=== PATIENT | female | born 1955 | race Caucasian/White ===

== ENCOUNTER 2018-05-20 06:02 | Day surgery (SDC) | payer OTHER ==
[2018-05-20] MEDS ORDERED: MIDAZOLAM 1 MG/ML 2 ML INJ (08:58)
[2018-05-20] MEDS ORDERED: FENTAnyl 50 MCG/ML VIAL (08:58)
== END 2018-05-20 10:40 | disposition home or self-care (01) ==
LOC: GIL 06:02
DX: C18.7 Malignant neoplasm of sigmoid colon (principal); K64.8 Other hemorrhoids; E78.5 Hyperlipidemia, unspecified
CPT/HCPCS: 45380; 88305

== ENCOUNTER 2018-07-22 08:42 | Inpatient (IN) | payer OTHER ==
[2018-07-22] MEDS: SOD CHLORIDE 0.9% 1,000 ML IV (08:00)
[~2018-07-22 08:42] MED LIST: SEVOFLURANE 15 MIN
[2018-07-22] MEDS ORDERED: NEOSTIGMINE 10 MG INJ (09:43)
[2018-07-22] MEDS ORDERED: SUCCINYLCHOLINE CHLORIDE 100 MG/5 ML SYG IV (09:43)
[2018-07-22] MEDS ORDERED: ROCURONIUM 50 MG INJ ×2 (09:43→13:00)
[2018-07-22] MEDS ORDERED: MIDAZOLAM 1 MG/ML 2 ML INJ (09:43)
[2018-07-22] MEDS ORDERED: LIDOCAINE 100 MG SYRINGE (09:43)
[2018-07-22] MEDS ORDERED: PROPOFOL 20 ML (09:43)
[2018-07-22] MEDS ORDERED: GLYCOPYRROLATE 0.4 MG INJ (09:43)
[2018-07-22] MEDS ORDERED: PHENYLephrine (100 MCG/ML) 10ML SYG (09:44)
[2018-07-22] MEDS ORDERED: METOCLOPRAMIDE 10 MG INJ (09:44)
[2018-07-22] MEDS ORDERED: KETOROLAC 30 MG INJ (09:44)
[2018-07-22] MEDS ORDERED: ONDANSETRON 4 MG INJ (09:44)
[2018-07-22] MEDS: AMPICILLIN/SULB 3 GM/NS (PMX) 100 ML IVPB (11:20)
[2018-07-22] MEDS ORDERED: hydrALAzine 20 MG INJ IV (12:00)
[2018-07-22] MEDS ORDERED: ONDANSETRON 4 MG INJ IV ×2 (12:00→15:00)
[2018-07-22] MEDS ORDERED: KETOROLAC 30 MG INJ IV (12:00)
[2018-07-22] MEDS ORDERED: MEPERIDINE 25 MG INJ IV (12:00)
[2018-07-22] MEDS ORDERED: METOCLOPRAMIDE 10 MG INJ IV (12:00)
[2018-07-22] MEDS ORDERED: LABETALOL HCL 20MG INJ IV (12:00)
[2018-07-22] MEDS ORDERED: morphine (1 MG/ML) 10ML SYRINGE IV (12:00)
[2018-07-22] MEDS ORDERED: OXYCODONE/ACETAMINOPHEN (5/325) TAB PO (12:00)
[2018-07-22] MEDS ORDERED: HYDROmorphONE 1 MG/5 ML IV SYRINGE IV (12:00)
[2018-07-22] MEDS ORDERED: DIPHENHYDRAMINE 50 MG INJ IV (12:00)
[2018-07-22] MEDS ORDERED: FENTAnyl 50 MCG/ML VIAL IV (12:00)
[2018-07-22] MEDS ORDERED: ALBUTEROL 0.083% (NEB) 2.5 MG/3 ML AMP HHN (12:00)
[2018-07-22] MEDS ORDERED: EPHEDrine 50 MG INJ (12:13)
[2018-07-22] MEDS ORDERED: METOPROLOL 5 MG INJ (12:13)
[2018-07-22] MEDS: morphine 1 MG/ML 30 ML (PCA) IV (15:14)
[2018-07-22] MEDS: ACETAMINOPHEN 1000MG/100ML IV 100 ML IVPB (18:08)
[2018-07-22] MEDS: D5W-0.45 NACL + KCL 20 MEQ 1,000 ML IV ×2 (18:09→22:44)
[2018-07-23] MEDS: D5W-0.45 NACL + KCL 20 MEQ 1,000 ML IV ×3 (06:09→18:15)
[2018-07-23] MEDS: morphine 1 MG/ML 30 ML (PCA) IV (07:04)
[2018-07-23] MEDS ORDERED: VITAMIN A & D 5 GM OINT PACKET TOP (07:43)
[2018-07-23 10:25] LABS: ADD MAN DIFF? NO
[2018-07-23 10:26] LABS: BASOPHILS % 0.4 % (0.0-2.0); EOSINOPHILS # 0.1 10^3/ul (0.0-0.5); EOSINOPHILS % 0.6 % (0.0-7.0); HEMATOCRIT 32.2 % (37.0-47.0); HEMOGLOBIN 10.4 g/dl (12.0-16.0); LYMPHOCYTES # 2.6 10^3/ul (0.8-2.9); LYMPHOCYTES % 31.3 % (15.0-51.0); MEAN CORPUSCULAR HEMOGLOBIN 28.8 pg (29.0-33.0); MEAN CORPUSCULAR HGB CONC 32.3 g/dl (32.0-37.0); MEAN CORPUSCULAR VOLUME 89.2 fl (82.0-101.0); MEAN PLATELET VOLUME 10.2 fl (7.4-10.4); MONOCYTE # 0.9 10^3/ul (0.3-0.9); MONOCYTES % 10.6 % (0.0-11.0); NEUTROPHIL # 4.8 10^3/ul (1.6-7.5); NEUTROPHILS % 56.7 % (39.0-77.0); PLATELET COUNT 247 10^3/UL (140-415); RED BLOOD COUNT 3.61 10^6/ul (4.20-5.40)
[2018-07-23 10:26] LABS: WHITE BLOOD COUNT 8.4 10^3/ul (4.8-10.8)
[2018-07-23 10:57] LABS: INR 1.18; PROTIME 15.1 Sec (11.9-14.9); PT RATIO 1.2
[2018-07-23 10:58] LABS: ANION GAP 0 (5-13); BLOOD UREA NITROGEN 10 mg/dl (7-20); CALCIUM 8.3 mg/dl (8.4-10.2); CARBON DIOXIDE 32 mmol/L (21-31); CHLORIDE 105 mmol/L (97-110); CREATININE 0.65 mg/dl (0.44-1.00); Estimated GFR > 60 mL/min (>60); GLUCOSE 109 mg/dl (70-220); MAGNESIUM 1.8 mg/dl (1.7-2.5); PARTIAL THROMBOPLASTIN TIME 31.7 Sec (23.0-35.0); PHOSPHORUS 3.2 mg/dl (2.5-4.9); SODIUM 137 mmol/L (135-144)
[2018-07-23] MEDS: PIPER-TAZO 3.375 GM IV (PMX) 100 ML IVPB ×3 (11:38→23:15)
[2018-07-24] MEDS: PIPER-TAZO 3.375 GM IV (PMX) 100 ML IVPB ×4 (05:28→23:43)
[2018-07-24] MEDS: D5W-0.45 NACL + KCL 20 MEQ 1,000 ML IV ×4 (05:31→22:44)
[2018-07-24] MEDS: morphine 1 MG/ML 30 ML (PCA) IV (05:45)
[2018-07-24 08:48] LABS: ADD MAN DIFF? NO
[2018-07-24 08:56] LABS: BASOPHILS % 0.4 % (0.0-2.0); EOSINOPHILS # 0.1 10^3/ul (0.0-0.5); EOSINOPHILS % 1.1 % (0.0-7.0); HEMATOCRIT 33.9 % (37.0-47.0); HEMOGLOBIN 10.8 g/dl (12.0-16.0); LYMPHOCYTES # 2.3 10^3/ul (0.8-2.9); LYMPHOCYTES % 25.9 % (15.0-51.0); MEAN CORPUSCULAR HEMOGLOBIN 28.4 pg (29.0-33.0); MEAN CORPUSCULAR HGB CONC 31.9 g/dl (32.0-37.0); MEAN CORPUSCULAR VOLUME 89.2 fl (82.0-101.0); MEAN PLATELET VOLUME 9.7 fl (7.4-10.4); NEUTROPHIL # 5.6 10^3/ul (1.6-7.5); NEUTROPHILS % 61.4 % (39.0-77.0); PLATELET COUNT 245 10^3/UL (140-415); RED CELL DISTRIBUTION WIDTH 12.7 % (11.5-14.5)
[2018-07-24 08:56] LABS: WHITE BLOOD COUNT 9.1 10^3/ul (4.8-10.8)
[2018-07-24 09:18] LABS: ANION GAP 2 (5-13); BLOOD UREA NITROGEN 6 mg/dl (7-20); CALCIUM 8.4 mg/dl (8.4-10.2); CARBON DIOXIDE 31 mmol/L (21-31); CHLORIDE 101 mmol/L (97-110); CREATININE 0.78 mg/dl (0.44-1.00); Estimated GFR > 60 mL/min (>60); GLUCOSE 123 mg/dl (70-220); MAGNESIUM 1.8 mg/dl (1.7-2.5); PHOSPHORUS 3.1 mg/dl (2.5-4.9); POTASSIUM 4.8 mmol/L (3.5-5.1); SODIUM 134 mmol/L (135-144)
[2018-07-24 09:26] LABS: INR 1.13; PROTIME 14.6 Sec (11.9-14.9); PT RATIO 1.1
[2018-07-24 09:27] LABS: PARTIAL THROMBOPLASTIN TIME 29.7 Sec (23.0-35.0)
[2018-07-25] MEDS: D5W-0.45 NACL + KCL 20 MEQ 1,000 ML IV ×3 (03:21→23:12)
[2018-07-25] MEDS: PIPER-TAZO 3.375 GM IV (PMX) 100 ML IVPB ×4 (06:11→23:12)
[2018-07-25 09:05] LABS: ADD MAN DIFF? NO
[2018-07-25 09:08] LABS: BASOPHIL # 0.1 10^3/ul (0.0-0.1); BASOPHILS % 0.7 % (0.0-2.0); EOSINOPHILS # 0.3 10^3/ul (0.0-0.5); EOSINOPHILS % 3.8 % (0.0-7.0); HEMOGLOBIN 11.4 g/dl (12.0-16.0); LYMPHOCYTES # 1.8 10^3/ul (0.8-2.9); LYMPHOCYTES % 26.3 % (15.0-51.0); MEAN CORPUSCULAR HEMOGLOBIN 28.4 pg (29.0-33.0); MEAN CORPUSCULAR HGB CONC 32.6 g/dl (32.0-37.0); MEAN CORPUSCULAR VOLUME 87.1 fl (82.0-101.0); MEAN PLATELET VOLUME 9.6 fl (7.4-10.4); MONOCYTE # 0.6 10^3/ul (0.3-0.9); MONOCYTES % 9.3 % (0.0-11.0); NEUTROPHIL # 4.1 10^3/ul (1.6-7.5); NEUTROPHILS % 59.6 % (39.0-77.0); PLATELET COUNT 266 10^3/UL (140-415); RED BLOOD COUNT 4.02 10^6/ul (4.20-5.40); RED CELL DISTRIBUTION WIDTH 12.4 % (11.5-14.5)
[2018-07-25 09:08] LABS: WHITE BLOOD COUNT 6.8 10^3/ul (4.8-10.8)
[2018-07-25 09:29] LABS: INR 1.08; PROTIME 14.1 Sec (11.9-14.9); PT RATIO 1.1
[2018-07-25 09:30] LABS: PARTIAL THROMBOPLASTIN TIME 28.6 Sec (23.0-35.0)
[2018-07-25 09:32] LABS: ANION GAP 4 (5-13); BLOOD UREA NITROGEN 4 mg/dl (7-20); CALCIUM 8.5 mg/dl (8.4-10.2); CARBON DIOXIDE 29 mmol/L (21-31); CHLORIDE 105 mmol/L (97-110); CREATININE 0.59 mg/dl (0.44-1.00); Estimated GFR > 60 mL/min (>60); GLUCOSE 139 mg/dl (70-220); MAGNESIUM 1.9 mg/dl (1.7-2.5); PHOSPHORUS 2.7 mg/dl (2.5-4.9); SODIUM 138 mmol/L (135-144)
[2018-07-25] MEDS ORDERED: VITAMIN A & D 5 GM OINT PACKET TOP (14:17)
[2018-07-26] MEDS: PIPER-TAZO 3.375 GM IV (PMX) 100 ML IVPB ×3 (05:16→18:11)
[2018-07-26] MEDS: morphine 1 MG/ML 30 ML (PCA) IV (06:02)
[2018-07-26] MEDS: D5W-0.45 NACL + KCL 20 MEQ 1,000 ML IV ×3 (06:44→18:11)
[2018-07-27] MEDS: PIPER-TAZO 3.375 GM IV (PMX) 100 ML IVPB ×4 (00:29→17:29)
[2018-07-27] MEDS: D5W-0.45 NACL + KCL 20 MEQ 1,000 ML IV ×3 (03:45→14:11)
[2018-07-27] MEDS ORDERED: morphine 2 MG INJ IV (14:00)
[2018-07-28] MEDS: D5W-0.45 NACL + KCL 20 MEQ 1,000 ML IV ×3 (00:10→21:10)
[2018-07-28] MEDS: PIPER-TAZO 3.375 GM IV (PMX) 100 ML IVPB ×3 (00:20→12:35)
[2018-07-28 05:11] LABS: ADD MAN DIFF? NO
[2018-07-28 05:24] LABS: WHITE BLOOD COUNT 6.8 10^3/ul (4.8-10.8)
[2018-07-28 05:24] LABS: BASOPHILS % 0.6 % (0.0-2.0); EOSINOPHILS # 0.5 10^3/ul (0.0-0.5); EOSINOPHILS % 7.8 % (0.0-7.0); HEMATOCRIT 34.6 % (37.0-47.0); HEMOGLOBIN 11.4 g/dl (12.0-16.0); LYMPHOCYTES % 29.4 % (15.0-51.0); MEAN CORPUSCULAR HEMOGLOBIN 28.5 pg (29.0-33.0); MEAN CORPUSCULAR HGB CONC 32.9 g/dl (32.0-37.0); MEAN CORPUSCULAR VOLUME 86.5 fl (82.0-101.0); MEAN PLATELET VOLUME 9.5 fl (7.4-10.4); MONOCYTE # 0.5 10^3/ul (0.3-0.9); MONOCYTES % 7.4 % (0.0-11.0); NEUTROPHIL # 3.7 10^3/ul (1.6-7.5); NEUTROPHILS % 54.5 % (39.0-77.0); PLATELET COUNT 332 10^3/UL (140-415); RED CELL DISTRIBUTION WIDTH 12.4 % (11.5-14.5)
[2018-07-28 05:54] LABS: ANION GAP 8 (5-13); BLOOD UREA NITROGEN 7 mg/dl (7-20); CALCIUM 9.4 mg/dl (8.4-10.2); CARBON DIOXIDE 26 mmol/L (21-31); CHLORIDE 105 mmol/L (97-110); CREATININE 0.62 mg/dl (0.44-1.00); Estimated GFR > 60 mL/min (>60); GLUCOSE 145 mg/dl (70-220); POTASSIUM 3.7 mmol/L (3.5-5.1); SODIUM 139 mmol/L (135-144)
[2018-07-28] MEDS ORDERED: ACETAMINOPHEN 500 MG TAB PO (16:30)
[2018-07-28] MEDS ORDERED: HYDROCODONE/APAP (5/325) TAB PO (16:30)
[2018-07-29 05:15] LABS: ADD MAN DIFF? NO
[2018-07-29 05:23] LABS: WHITE BLOOD COUNT 7.4 10^3/ul (4.8-10.8)
[2018-07-29 05:23] LABS: BASOPHILS % 0.5 % (0.0-2.0); EOSINOPHILS # 0.5 10^3/ul (0.0-0.5); HEMATOCRIT 34.8 % (37.0-47.0); HEMOGLOBIN 11.4 g/dl (12.0-16.0); LYMPHOCYTES % 27.5 % (15.0-51.0); MEAN CORPUSCULAR HEMOGLOBIN 27.9 pg (29.0-33.0); MEAN CORPUSCULAR HGB CONC 32.8 g/dl (32.0-37.0); MEAN CORPUSCULAR VOLUME 85.3 fl (82.0-101.0); MEAN PLATELET VOLUME 9.3 fl (7.4-10.4); MONOCYTE # 0.5 10^3/ul (0.3-0.9); MONOCYTES % 6.4 % (0.0-11.0); NEUTROPHIL # 4.3 10^3/ul (1.6-7.5); NEUTROPHILS % 58.3 % (39.0-77.0); PLATELET COUNT 328 10^3/UL (140-415); RED BLOOD COUNT 4.08 10^6/ul (4.20-5.40); RED CELL DISTRIBUTION WIDTH 12.8 % (11.5-14.5)
[2018-07-29 05:50] LABS: ANION GAP 6 (5-13); BLOOD UREA NITROGEN 8 mg/dl (7-20); CALCIUM 9.5 mg/dl (8.4-10.2); CARBON DIOXIDE 26 mmol/L (21-31); CHLORIDE 108 mmol/L (97-110); CREATININE 0.55 mg/dl (0.44-1.00); Estimated GFR > 60 mL/min (>60); GLUCOSE 123 mg/dl (70-220); POTASSIUM 3.7 mmol/L (3.5-5.1); SODIUM 140 mmol/L (135-144)
[2018-07-29] MEDS: D5W-0.45 NACL + KCL 20 MEQ 1,000 ML IV (10:47)
[2018-07-30] MEDS: D5W-0.45 NACL + KCL 20 MEQ 1,000 ML IV (00:41)
[2018-07-30] MEDS ORDERED: traMADol 50 MG TAB PO (10:30)
[2018-07-31] MEDS: HYDROCODONE/APAP (5/325) TAB PO (01:46)
== END 2018-08-01 13:25 | disposition home or self-care (01) | DRG 334 ==
LOC: REC 08:42 → MS1 16:48
PROC: 0DTP0ZZ Resection of Rectum, Open Approach (ICD-10-PCS; principal; 2018-07-22 10:30)
PROC: 0DJD8ZZ Inspection of Lower Intestinal Tract, Via Natural or Artificial Opening Endoscopic (ICD-10-PCS; 2018-07-22 10:30)
DX: C20 Malignant neoplasm of rectum (principal); E78.5 Hyperlipidemia, unspecified; R73.03 Prediabetes
CPT/HCPCS: 74018; 80048; 83735; 84100; 85025; 85610; 85730; 87086; 88300